=== PATIENT | female | born 1995 | race Caucasian/White ===

== ENCOUNTER 2017-07-12 20:27 | Emergency (ER) | payer OTHER ==
[~2017-07-12] VITALS: Ht 172.7 cm; Wt 59.0 kg
[2017-07-12 20:30] VITALS: BP 134/81
== END 2017-07-12 20:51 | disposition home or self-care (01) ==
LOC: ER 20:27
DX: S09.8XXA Other specified injuries of head, initial encounter (principal); R51 Headache; Z88.0 Allergy status to penicillin; V49.49XA Driver injured in collision with other motor vehicles in traffic accident, initial encounter; Y93.89 Activity, other specified; Y92.413 State road as the place of occurrence of the external cause; Y99.8 Other external cause status
CPT/HCPCS: A4606; Z7610

== ENCOUNTER 2018-11-14 09:06 | Emergency (ER) | payer OTHER ==
[~2018-11-14] VITALS: Ht 172.7 cm; Wt 61.2 kg
[2018-11-14 09:11] VITALS: BP 125/73
[2018-11-14] MEDS ORDERED: DEXAMETHASONE SOD PHOSPHATE 4 MG/ML VIAL ONE (09:21)
[2018-11-14] MEDS ORDERED: DEXAMETHASONE SOD PHOSPHATE 4 MG/ML VIAL IM ONE (09:30)
== END 2018-11-14 09:27 | disposition home or self-care (01) ==
LOC: ER 09:09
DX: J02.9 Acute pharyngitis, unspecified (principal); R59.0 Localized enlarged lymph nodes; L53.9 Erythematous condition, unspecified; J35.1 Hypertrophy of tonsils; Z88.0 Allergy status to penicillin; Z98.82 Breast implant status
CPT/HCPCS: 96372; 99283; J1100

== ENCOUNTER 2019-01-01 13:52 | Emergency (ER) | payer OTHER ==
[~2019-01-01] VITALS: Ht 170.2 cm; Wt 59.0 kg
--- NOTE | 2019-01-01 14:05 | NUR ---
URINE COLLECTED AND SENT TO LAB
--- NOTE | 2019-01-01 14:11 | NUR ---
PATIENT ARRIVED AT UNIT. WITH C/O ABD PAIN x 3 DAYS, -N/V,-DIARRHEA. CONNECTED TO MONITOR. WILL CONTINUE TO MONITOR ACCORDINGLY
[2019-01-01 14:46] LABS: BASOPHILS % (AUTO) 0.7 % (0.0-2.0); EOSINOPHILS % (AUTO) 4.8 % (0.0-6.0); HEMATOCRIT 41 % (33-45); HEMOGLOBIN 13.1 g/dL (11.5-14.8); LYMPHOCYTES # (AUTO) 1.6 /CMM (0.8-4.8); LYMPHOCYTES % (AUTO) 29.4 % (20.0-44.0); MEAN CORPUSCULAR HGB CONC 33 g/dl (31.0-36.0); MEAN CORPUSCULAR VOLUME 83 fL (82-100); MONOCYTES # (AUTO) 0.4 /CMM (0.1-1.30); MONOCYTES % (AUTO) 7.8 % (2.0-12.0); NEUTROPHILS # (AUTO) 3.2 /CMM (1.8-8.9); NEUTROPHILS % (AUTO) 57.3 % (43.0-81.0); PLATELET COUNT (AUTO) 214 /CMM (150-450); RED BLOOD CELL COUNT(AUTO) 4.86 MIL/uL (4.0-5.2); WHITE BLOOD COUNT (AUTO) 5.6 K/uL (4.3-11.0)
[2019-01-01 14:47] LABS: APPEARANCE,URINE Clear (CLEAR); BILIRUBIN,URINE Negative (NEGATIVE); BLOOD, URINE Trace-lysed Ery/uL (NEGATIVE); COLOR,URINE Yellow (YELLOW); KETONES,URINE Negative (NEGATIVE); LEUKOCYTE ESTERASE ,URINE Negative (NEGATIVE); NITRITE, URINE Negative (NEGATIVE); PROTEIN,URINE Negative (NEGATIVE); UGLUCOSE Negative (NEGATIVE); UROBILINOGEN,URINE 0.2 EU/dL (0.2)
[2019-01-01 14:54] LABS: BACTERIA,URINE Rare /HPF (None Seen); SQUAMOUS EPITHELIAL CELL,UR Moderate /HPF (None Seen); WBC,URINE 0-2 /HPF (0-3)
[2019-01-01 15:03] LABS: ALBUMIN 4.1 g/dL (3.4-5.0); BILIRUBIN,DIRECT 0.1 mg/dL (0.0-0.2); BILIRUBIN,TOTAL 0.5 mg/dL (0.2-1.0); CALCIUM, SERUM 8.9 mg/dL (8.5-10.1); CREATININE 0.8 mg/dL (0.6-1.3); POTASSIUM 3.7 mmol/L (3.5-5.1); TOTAL PROTEIN, SERUM 7.3 g/dL (6.4-8.2)
[2019-01-01 15:37] VITALS: BP 116/71
--- NOTE | 2019-01-01 15:38 | NUR ---
Patient discharged to home in stable condition. Written and verbal after care instructions given. Patient verbalizes understanding of instruction.
== END 2019-01-01 15:38 | disposition home or self-care (01) ==
LOC: ER 13:56
DX: R10.30 Lower abdominal pain, unspecified (principal); K59.00 Constipation, unspecified; Z98.890 Other specified postprocedural states; Z88.0 Allergy status to penicillin
CPT/HCPCS: 36415; 80048-TC; 80076-TC; 81000-TC; 83690-TC; 84703-TC; 85025-TC; 87086-TC; 87491; 87591

== ENCOUNTER 2019-04-03 00:17 | Emergency (ER) | payer OTHER ==
[~2019-04-03] VITALS: Ht 172.7 cm; Wt 57.6 kg
--- NOTE | 2019-04-03 00:17 | NUR ---
TO ER BED 5 AMBULATORY C/O PALPITATION WITH SOB X1 WEEK WORSE TONIGHT. PT AAOX4 NO ACUTE DISTRESS NOTED, RESP EVEN AND UNLABORED. SKIN WARM, NONDIAPHORETIC. PT REPORTS THAT SHE HAS BEEN TAPERING OFF HER ADERALL BUT GRADUALLY DECREASING THE DOSE X1 WEEK ALREADY. PLACE PT ON CARDIAC MONITORING, CONTINUOUS POX. PENDING ER MD LEWIS.
[2019-04-03 00:55] LABS: BASOPHILS # (AUTO) 0.1 /CMM (0.0-0.2); BASOPHILS % (AUTO) 0.5 % (0.0-2.0); EOSINOPHILS % (AUTO) 2.8 % (0.0-6.0); HEMATOCRIT 43 % (33-45); HEMOGLOBIN 13.9 g/dL (11.5-14.8); LYMPHOCYTES # (AUTO) 2.9 /CMM (0.8-4.8); LYMPHOCYTES % (AUTO) 28.1 % (20.0-44.0); MEAN CORPUSCULAR HGB CONC 33 g/dl (31.0-36.0); MEAN CORPUSCULAR VOLUME 82 fL (82-100); MONOCYTES # (AUTO) 0.6 /CMM (0.1-1.30); NEUTROPHILS # (AUTO) 6.4 /CMM (1.8-8.9); NEUTROPHILS % (AUTO) 62.6 % (43.0-81.0); PLATELET COUNT (AUTO) 309 /CMM (150-450); RED BLOOD CELL COUNT(AUTO) 5.19 MIL/uL (4.0-5.2); WHITE BLOOD COUNT (AUTO) 10.2 K/uL (4.3-11.0)
[2019-04-03] MEDS ORDERED: IV NS 0.9% 1,000 ML BAG IV ONE (01:00)
[2019-04-03] MEDS ORDERED: KETOROLAC TROMETHAMINE INJ 30 MG/ML VIAL IV ONE (01:00)
[2019-04-03 01:02] LABS: CALCIUM, SERUM 9.2 mg/dL (8.5-10.1); CARBON DIOXIDE 27 mmol/L (21-32); CHLORIDE 103 mmol/L (98-107); CREATININE 0.8 mg/dL (0.6-1.3); GLUCOSE 115 mg/dL (74-106); POTASSIUM 3.1 mmol/L (3.5-5.1); SODIUM SERUM 138 mmol/L (136-145); UREA NITROGEN, BLOOD 11 mg/dL (7-18)
[2019-04-03 01:03] LABS: MAGNESIUM 1.8 mg/dL (1.8-2.4)
--- NOTE | 2019-04-03 01:16 | NUR ---
PT RESTING QUIELY WITH S/O AT BEDSIDE. NO ACUTE DISTRESS NOTED, RESP EVEN AND UNLABORED. CALL LIGHT ELIZABETH REACH WILL CONTINUE TO MONITOR PT CLOSELY.
--- NOTE | 2019-04-03 01:23 | NUR ---
ECG TECH AT THE BED SIDE FOR REPEAT EKG
--- NOTE | 2019-04-03 01:25 | NUR ---
NOTED PT HR-130'S, ER MD AWARE WITH ORDERS RECEIVED.
[2019-04-03 01:34] LABS: THYROID STIMULATING HORMONE 2.006 uIU/mL (0.358-3.74)
--- NOTE | 2019-04-03 01:53 | NUR ---
PHIL ROMANO AT BEDSIDE TO RE-EVAL PT.
[2019-04-03] MEDS ORDERED: DILTIAZEM HCL 50 MG IV IV ONE (02:00)
[2019-04-03] MEDS ORDERED: DILTIAZEM HCL 25 MG IV ONE (02:02)
[2019-04-03] MEDS ORDERED: LORAZEPAM INJ 2 MG/ML VIAL ONE (02:41)
[2019-04-03] MEDS ORDERED: LORAZEPAM INJ 2 MG/ML VIAL IV ONE (03:00)
--- NOTE | 2019-04-03 03:15 | NUR ---
Patient discharged to home in stable condition. Written and verbal after care instructions given. Patient verbalizes understanding of instruction.IV removed. Catheter intact and site benign. Pressure and 4x4 applied to site. No bleeding noted.Pt ambulatory with a steady gait. Pt instructed not to drive, pt verbalized understanding.
[2019-04-03 03:58] VITALS: BP 133/85
== END 2019-04-03 04:00 | disposition home or self-care (01) ==
LOC: ER 00:19
DX: R00.2 Palpitations (principal); R00.0 Tachycardia, unspecified; Z88.0 Allergy status to penicillin; Z98.82 Breast implant status
CPT/HCPCS: 36415; 71045; 80048; 83735; 84439; 84443; 84484; 85025; 85378; 93005 ×2; 96374; 99284; J2060; J3490; J7030